=== PATIENT | female | born 1965 | race Caucasian/White ===

== ENCOUNTER 2018-04-09 10:12 | Emergency (ER) | payer OTHER, SELFPAY ==
[2018-04-09 10:17] VITALS: BP 99/54; PULSE 84; RESP 14; TEMP 36.4; O2SAT 97; BMI 33.3
[2018-04-09 10:40] VITALS: BP 109/72; PULSE 65; RESP 16; O2SAT 98
[2018-04-09 11:38] VITALS: BP 115/47; PULSE 72; RESP 14; O2SAT 99
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
[2018-04-09 11:55] LABS: Amorphous Sediment Urine 2+; Culture Indicated Urine Cult Not Indicated; Squamous Epithelial Cell Urine 5-10 /HPF; WBC Urine 5-10/HPF (0-5/HPF)
[2018-04-09 12:16] VITALS: BP 107/73; PULSE 72; RESP 14; TEMP 36.4; O2SAT 99
== END 2018-04-09 12:30 | disposition home or self-care (01) ==
PROVIDERS: Emergency Provider Emergency Medicine
DX: S13.4XXA Sprain of ligaments of cervical spine, initial encounter (principal); R10.9 Unspecified abdominal pain; V49.9XXA Car occupant (driver) (passenger) injured in unspecified traffic accident, initial encounter
CPT/HCPCS: 76700; 81003; 81015; 99283